=== PATIENT | female | born 1960 | race Caucasian/White ===

== ENCOUNTER 2024-09-13 13:11 | Outpatient (CLI) | payer BC ==
[2024-09-13] MEDS ORDERED: Iopamidol 300 61% 100 ML VIAL FS ONE (14:25)
== END 2024-09-13 13:12 | disposition home or self-care (01) ==
LOC: CSHCT 13:11
PROVIDERS: ATTEND Physician Assistant
DX: K11.21 Acute sialoadenitis (principal)
CPT/HCPCS: 36415; 70492; 82565

== ENCOUNTER 2024-09-23 20:30 | Emergency (ER) | payer BC | END 2024-09-23 22:54 | disposition home or self-care (01) | LOC: CSHERS 20:30 | DX: K04.7 Periapical abscess without sinus (principal); V89.2XXA Person injured in unspecified motor-vehicle accident, traffic, initial encounter | CPT/HCPCS: 99283 ==

== ENCOUNTER 2024-09-26 14:18 | Inpatient (IN) | payer BC ==
[~2024-09-26 14:18] MED LIST: Iopamidol 300 61% 100 ML VIAL FS ONE
[2024-09-26] MEDS ORDERED: Dexamethasone 10 MG/ML VIAL ONE (14:42)
[2024-09-26] MEDS ORDERED: Morphine 4 MG/ML VIAL ONE (14:42)
[2024-09-26] MEDS ORDERED: HYDROcodone/Acetaminophen 10/325 mg Tablet ONE (14:57)
[2024-09-26 15:09] LABS: #Basophils Less than 0.03 10x3/uL (0.0-0.2); #Eosinophils 0.17 10x3/uL (0.0-0.5); #Monocytes 0.62 10x3/uL (0.0-1.1); #Neutrophils 5.87 10x3/uL (1.5-8.4); %Basophils 0.2 % (0.0-2.0); %Eosinophils 2.1 % (0.0-6.0); %Lymphocytes 19.2 % (18.0-47.0); %Monocytes 7.5 % (0.0-10.0); %Neutrophils 70.8 % (40.0-75.0); Hematocrit 38.8 % (34.9-44.5); Hemoglobin 12.7 g/dL (12.0-15.5); Mean Corpuscular HGB CONC 32.7 g/dL (32.0-36.0); Mean Corpuscular Hemoglobin 27.9 pg (27.0-33.0); Mean Corpuscular Volume 85.1 fL (81.6-98.3); Mean Platelet Volume 8.9 fL (7.4-10.4); Platelet Count 373 10x3/uL (150-450); RBC Distribution Width 14.1 % (11.5-14.5); Red Blood Cell (RBC) Count 4.56 10x6/uL (3.90-5.03); White Blood Cell (WBC) Count 8.29 10x3/uL (3.5-10.5)
[2024-09-26 15:16] LABS: PTT 27.1 sec (22.0-33.0); Prothrombin Time 10.8 sec (9.5-12.1)
[2024-09-26 15:18] LABS: ALT (SGPT) 12 U/L (8-55); AST (SGOT) 12 U/L (5-34); Albumin 3.5 g/dL (3.4-4.8); Alkaline Phosphatase 63 U/L (40-110); Anion Gap 15 mmol/L (10-20); BUN (Urea Nitrogen) 12 mg/dL (9.8-20.1); Bilirubin, Total 0.5 mg/dL (0.2-1.2); Calc. Creatinine Clearance 0 mL/min (70-130); Calcium 9.4 mg/dL (7.8-10.44); Carbon Dioxide 22 mmol/L (23-31); Chloride 104 mmol/L (98-107); Estimated GFR 94; Globulin 3.9 g/dL (2.4-3.5); Glucose 103 mg/dL (80-115); Potassium 4.5 mmol/L (3.5-5.1); Protein, Total 7.4 g/dL (5.8-8.1); Sodium 136 mmol/L (136-145)
[2024-09-26] MEDS ORDERED: Ondansetron PF 4 MG/2 ML Vial ONE (15:57)
[2024-09-26] MEDS ORDERED: Ondansetron ODT 4 MG TAB PO PRN (18:39)
[2024-09-26] MEDS ORDERED: Acetaminophen/Codeine 30-300mg Tablet PO PRN (18:39)
[2024-09-26] MEDS: Clindamycin/D5W 900 MG in Premix 1 BAG IVPB SCH ×2 (19:14→21:31)
[2024-09-26] MEDS ORDERED: Ampicillin/Sulbactam 3 GM in Sodium Chloride 0.9% 100 ML IVPB SCH (20:00)
[2024-09-26] MEDS: traMADol HCl 50 MG TAB PO PRN (20:29)
[2024-09-26] MEDS: Sodium Chloride 0.9% 1,000 ML IV SCH (20:30)
[2024-09-26 20:39] VITALS: BMI 37.5
[2024-09-26] MEDS: Estradiol 1 MG TAB PO SCH (21:30)
[2024-09-26] MEDS: Montelukast Sodium 10 mg Tablet PO SCH (21:30)
[2024-09-26] MEDS: Amlodipine 5 MG TAB PO SCH (21:31)
[2024-09-26] MEDS: Morphine 2 MG/ML VIAL SLOW IVP PRN (22:19)
[2024-09-27 04:18] LABS: #Basophils Less than 0.03 10x3/uL (0.0-0.2); #Eosinophils Less than 0.03 10x3/uL (0.0-0.5); #Monocytes 0.15 10x3/uL (0.0-1.1); #Neutrophils 4.18 10x3/uL (1.5-8.4); %Lymphocytes 10.5 % (18.0-47.0); %Monocytes 3.1 % (0.0-10.0); %Neutrophils 86.2 % (40.0-75.0); Hematocrit 33.5 % (34.9-44.5); Hemoglobin 11.3 g/dL (12.0-15.5); Mean Corpuscular HGB CONC 33.7 g/dL (32.0-36.0); Mean Corpuscular Hemoglobin 28.5 pg (27.0-33.0); Mean Corpuscular Volume 84.4 fL (81.6-98.3); Mean Platelet Volume 9.1 fL (7.4-10.4); Platelet Count 329 10x3/uL (150-450); RBC Distribution Width 13.5 % (11.5-14.5); Red Blood Cell (RBC) Count 3.97 10x6/uL (3.90-5.03); White Blood Cell (WBC) Count 4.85 10x3/uL (3.5-10.5)
[2024-09-27 04:36] LABS: ALT (SGPT) 14 U/L (8-55); AST (SGOT) 13 U/L (5-34); Alkaline Phosphatase 64 U/L (40-110); Anion Gap 12 mmol/L (10-20); BUN (Urea Nitrogen) 8 mg/dL (9.8-20.1); Bilirubin, Total 0.4 mg/dL (0.2-1.2); Calc. Creatinine Clearance 159 mL/min (70-130); Calcium 8.5 mg/dL (7.8-10.44); Carbon Dioxide 19 mmol/L (23-31); Chloride 109 mmol/L (98-107); Estimated GFR 100; Globulin 3.3 g/dL (2.4-3.5); Glucose 136 mg/dL (80-115); Potassium 4.4 mmol/L (3.5-5.1); Protein, Total 6.3 g/dL (5.8-8.1); Sodium 136 mmol/L (136-145)
[2024-09-27] MEDS: DULoxetine 30 MG CAP PO SCH (08:48)
[2024-09-27] MEDS: Pantoprazole 40 MG DR.TAB PO SCH (08:48)
[2024-09-27] MEDS: Enoxaparin 40 MG (0.4 mL) SYRINGE SC SCH (08:48)
[2024-09-27] MEDS: Icosapent Ethyl 1 GM CAPSULE PO SCH (08:49)
[2024-09-27] MEDS ORDERED: Amlodipine 5 MG TAB PO SCH (09:00)
[2024-09-27] MEDS: Lactated Ringer's 1,000 ML IV SCH (09:07)
[2024-09-27] MEDS ORDERED: Ondansetron PF 4 MG/2 ML Vial ONE (12:10)
[2024-09-27] MEDS ORDERED: fentaNYL 50 mcg/mL 1 mL Vial ONE ×2 (12:10→14:13)
[2024-09-27] MEDS ORDERED: Rocuronium Bromide 10 MG/ML (10ML VIAL) ONE (12:10)
[2024-09-27] MEDS ORDERED: PROPOFOL 20 ML ONE (12:10)
[2024-09-27] MEDS ORDERED: Lidocaine 1% PF 5 ML VIAL ONE (12:10)
[2024-09-27] MEDS ORDERED: Chlorhexidine Gluconate 15 ML UDCUP SSP ONE (12:12)
[2024-09-27] MEDS ORDERED: Bupivacaine/Epinephrine 0.25% 30 ML VIAL ONE (12:13)
[2024-09-27] MEDS ORDERED: SUGAMMADEX SODIUM 200 MG/2 ML VIAL ONE (13:18)
[2024-09-27] MEDS ORDERED: AFRIN NASAL MIST 15 ML BOT ONE (13:47)
[2024-09-27] MEDS ORDERED: Oxymetazoline HCl 0.05% ( 15 ML ) NASAL PRN (15:40)
[2024-09-27] MEDS ORDERED: Estradiol 1 MG TAB PO SCH (21:00)
[2024-09-28 04:30] LABS: #Basophils Less than 0.03 10x3/uL (0.0-0.2); #Eosinophils 0.05 10x3/uL (0.0-0.5); #Monocytes 0.72 10x3/uL (0.0-1.1); #Neutrophils 4.24 10x3/uL (1.5-8.4); %Basophils 0.1 % (0.0-2.0); %Eosinophils 0.7 % (0.0-6.0); %Lymphocytes 24.8 % (18.0-47.0); %Monocytes 10.7 % (0.0-10.0); %Neutrophils 63.4 % (40.0-75.0); Hematocrit 32.1 % (34.9-44.5); Hemoglobin 10.7 g/dL (12.0-15.5); Mean Corpuscular HGB CONC 33.3 g/dL (32.0-36.0); Mean Corpuscular Hemoglobin 28.8 pg (27.0-33.0); Mean Corpuscular Volume 86.3 fL (81.6-98.3); Mean Platelet Volume 9.1 fL (7.4-10.4); Platelet Count 316 10x3/uL (150-450); RBC Distribution Width 14.2 % (11.5-14.5); Red Blood Cell (RBC) Count 3.72 10x6/uL (3.90-5.03)
[2024-09-28 04:52] LABS: ALT (SGPT) 11 U/L (8-55); AST (SGOT) 12 U/L (5-34); Albumin 2.9 g/dL (3.4-4.8); Alkaline Phosphatase 54 U/L (40-110); Anion Gap 10 mmol/L (10-20); BUN (Urea Nitrogen) 9 mg/dL (9.8-20.1); Bilirubin, Total 0.3 mg/dL (0.2-1.2); Calc. Creatinine Clearance 152 mL/min (70-130); Calcium 8.3 mg/dL (7.8-10.44); Carbon Dioxide 22 mmol/L (23-31); Chloride 107 mmol/L (98-107); Estimated GFR 99; Globulin 2.9 g/dL (2.4-3.5); Glucose 102 mg/dL (80-115); Potassium 3.8 mmol/L (3.5-5.1); Protein, Total 5.8 g/dL (5.8-8.1); Sodium 135 mmol/L (136-145)
[2024-09-28] MEDS: Sodium Chloride 0.9% 1,000 ML IV SCH (09:21)
[2024-09-28] MEDS: Acetaminophen 325 MG TAB PO PRN (21:41)
[2024-09-29 04:24] LABS: #Basophils Less than 0.03 10x3/uL (0.0-0.2); #Eosinophils 0.11 10x3/uL (0.0-0.5); #Monocytes 0.58 10x3/uL (0.0-1.1); #Neutrophils 2.44 10x3/uL (1.5-8.4); %Basophils 0.4 % (0.0-2.0); %Eosinophils 2.4 % (0.0-6.0); %Lymphocytes 31.9 % (18.0-47.0); %Monocytes 12.5 % (0.0-10.0); %Neutrophils 52.6 % (40.0-75.0); Hemoglobin 10.4 g/dL (12.0-15.5); Mean Corpuscular HGB CONC 33.5 g/dL (32.0-36.0); Mean Corpuscular Hemoglobin 28.7 pg (27.0-33.0); Mean Corpuscular Volume 85.6 fL (81.6-98.3); Platelet Count 269 10x3/uL (150-450); RBC Distribution Width 14.1 % (11.5-14.5); Red Blood Cell (RBC) Count 3.62 10x6/uL (3.90-5.03); White Blood Cell (WBC) Count 4.64 10x3/uL (3.5-10.5)
[2024-09-29 04:45] LABS: Anion Gap 11 mmol/L (10-20); BUN (Urea Nitrogen) 6 mg/dL (9.8-20.1); Calc. Creatinine Clearance 167 mL/min (70-130); Calcium 8.4 mg/dL (7.8-10.44); Carbon Dioxide 23 mmol/L (23-31); Chloride 107 mmol/L (98-107); Estimated GFR 101; Glucose 103 mg/dL (80-115); Potassium 3.8 mmol/L (3.5-5.1); Sodium 137 mmol/L (136-145)
[2024-09-29] MEDS ORDERED: Ibuprofen 800 MG TAB PO PRN (08:57)
[2024-09-29] MEDS: metroNIDAZOLE 500 MG in Premix 1 BAG IVPB SCH (10:46)
[2024-09-29] MEDS: Ibuprofen 200 MG TAB PO PRN (12:24)
[2024-09-29] MEDS: Clindamycin/D5W 900 MG in Premix 1 BAG IVPB SCH (15:33)
[2024-09-30 08:34] VITALS: BP 115/60; TEMP 98.5
== END 2024-09-30 11:25 | disposition home or self-care (01) | DRG 159 ==
LOC: CSHERS 14:18 → CSHTELE 17:35
PROVIDERS: ADMIT Family Medicine; ATTEND Internal Medicine
PROC: 0J910ZZ Drainage of Face Subcutaneous Tissue and Fascia, Open Approach (ICD-10-PCS; principal; 2024-09-26)
DX: K12.2 Cellulitis and abscess of mouth (principal); I10 Essential (primary) hypertension; J45.909 Unspecified asthma, uncomplicated; Z79.899 Other long term (current) drug therapy; Z88.0 Allergy status to penicillin; Z88.8 Allergy status to other drugs, medicaments and biological substances; V89.2XXA Person injured in unspecified motor-vehicle accident, traffic, initial encounter
CPT/HCPCS: 36415; 70491; 80048; 80053; 83605; 85025; 85610; 85730; 86140; 87040; 87070; 87077; 87205; 93005; 96374; 96375; 99283; J1100; J1650; J2270; J2272; J2405; J2704; J3010; J3490; J7030; J7120; Q9967